=== PATIENT | female | born 1935 | race Caucasian/White ===

== ENCOUNTER 2018-10-20 11:48 | Emergency (ER) | payer OTHER ==
[~2018-10-20 11:48] MED LIST: ALBU2.5V2 IH; AMIT25TA9 PO; AMIT50TA3 PO; AMLO5TAB7 PO; ASPI-1114 PO; AZAT50TA PO; BACL10TA PO; BENZ-51 PO; CALC600T12 PO; CARB-38 PO; CHOL200074 PO; CLON0.1T PO; DONE5TAB26 PO; DULO60CA63 PO; FURO20TA4 PO; GABA-531 PO; GABA600T PO; HYDR-4068 PO; ISOS30TA6 PO; LEVO500T2 PO; LEVO500T89 PO; LORA1TAB3 PO; LOSA100T20 PO; METO25TA3 PO; METR500T PO; MULT-1268 PO; PRED10TA3 PO; PRED20TA3 PO; PRED5TAB PO; ROPI0.257 PO; ROPI0.5T5 PO; [UNRECOGNIZED DRUG - CODE] PO
[2018-10-20] MEDS ORDERED: KETOROLAC TROMETHAMINE 30MG/ML ONE (12:33)
[2018-10-20 12:47] LABS: BASOPHILS % (AUTO) 0.9 % (0.0-5.0); EOSINOPHILS % (AUTO) 3.1 % (0.0-8.0); LYMPHOCYTES % (AUTO) 11.8 % (21.0-51.0); MEAN CORPUSCULAR HEMOGLOBIN 29.5 pg (27.0-33.0); MEAN CORPUSCULAR HGB CONC 33.4 g/dL (32.0-36.0); MEAN CORPUSCULAR VOLUME 88.5 fL (79-99); MONOCYTES % (AUTO) 6.7 % (3.0-13.0); NEUTROPHILS % (AUTO) 77.5 % (40.0-77.0); NUCLEATED RED BLOOD CELLS 0.1 % (0.0-0.19); PLATELET COUNT (AUTO) 99 K/uL (130-400); RED BLOOD CELL COUNT(AUTO) 4.86 MIL/uL (4.00-5.50); RED CELL DISTRIBUTION WIDTH 16.5 % (11.0-15.5); WHITE BLOOD COUNT (AUTO) 5.2 K/uL (4.8-10.8)
[2018-10-20 13:12] LABS: CREATININE 0.8 mg/dL (0.5-1.5)
[2018-10-20 13:27] LABS: BILIRUBIN,TOTAL 0.5 mg/dL (0.2-1.0)
[2018-10-20 13:28] LABS: ALBUMIN 3.6 g/dL (3.5-5.0); TOTAL PROTEIN, SERUM 7.3 g/dL (6.0-8.3)
== END 2018-10-20 15:24 | disposition home or self-care (01) ==
LOC: EDH 11:48
CPT/HCPCS: 36415; 71046; 71100; 80053; 84484; 85025; 93005; 96374; J1885

== ENCOUNTER 2019-05-14 14:50 | Emergency (ER) | payer OTHER ==
[~2019-05-14 14:50] MED LIST changes: -AMLO5TAB7 PO; +AMLO5TAB9 PO; -LOSA100T20 PO; +LOSA100T58 PO
[2019-05-14] MEDS ORDERED: CLINDAMYCIN HCL 150 MG CAP ONE (15:47)
[2019-05-14 16:03] LABS: CREATININE 0.8 mg/dL (0.5-1.5); POTASSIUM 4.3 mmol/L (3.5-5.1)
[2019-05-14 16:45] LABS: HEMATOCRIT 35.7 % (36-48); MEAN CORPUSCULAR HEMOGLOBIN 30.5 pg (27.0-33.0); MEAN CORPUSCULAR HGB CONC 33.8 g/dL (32.0-36.0); MEAN CORPUSCULAR VOLUME 90.2 fL (79-99); MONOCYTES % (AUTO) 7.5 % (3.0-13.0); NEUTROPHILS % (AUTO) 74.5 % (40.0-77.0); PLATELET COUNT (AUTO) 97 K/uL (130-400); RED BLOOD CELL COUNT(AUTO) 3.96 MIL/uL (4.00-5.50); RED CELL DISTRIBUTION WIDTH 16.7 % (11.0-15.5); WHITE BLOOD COUNT (AUTO) 5.1 K/uL (4.8-10.8)
[2019-05-14 18:25] LABS: PLATELET MORPHOLOGY COMMENT LARGE PLTS PRESENT
== END 2019-05-14 17:41 | disposition home or self-care (01) ==
LOC: EDH 14:50
DX: L03.113 Cellulitis of right upper limb (principal); I10 Essential (primary) hypertension; M79.7 Fibromyalgia; I25.10 Atherosclerotic heart disease of native coronary artery without angina pectoris; Z88.0 Allergy status to penicillin; Z88.2 Allergy status to sulfonamides; Z88.8 Allergy status to other drugs, medicaments and biological substances; Z95.0 Presence of cardiac pacemaker; Z90.710 Acquired absence of both cervix and uterus; Z90.49 Acquired absence of other specified parts of digestive tract; Z72.0 Tobacco use
CPT/HCPCS: 36415; 73130; 80048; 85025

== ENCOUNTER 2019-05-15 13:12 | Emergency (ER) | payer OTHER ==
[2019-05-15 13:46] LABS: BASOPHILS % (AUTO) 0.6 % (0.0-5.0); EOSINOPHILS % (AUTO) 2.6 % (0.0-8.0); HEMATOCRIT 36.2 % (36-48); LYMPHOCYTES % (AUTO) 11.6 % (21.0-51.0); MEAN CORPUSCULAR HEMOGLOBIN 29.7 pg (27.0-33.0); MEAN CORPUSCULAR HGB CONC 33.2 g/dL (32.0-36.0); MEAN CORPUSCULAR VOLUME 89.5 fL (79-99); NEUTROPHILS % (AUTO) 77.2 % (40.0-77.0); PLATELET COUNT (AUTO) 111 K/uL (130-400); RED BLOOD CELL COUNT(AUTO) 4.04 MIL/uL (4.00-5.50); RED CELL DISTRIBUTION WIDTH 16.8 % (11.0-15.5)
[2019-05-15 13:52] LABS: CREATININE 0.8 mg/dL (0.5-1.5); POTASSIUM 4.3 mmol/L (3.5-5.1)
[2019-05-15 13:57] LABS: ALBUMIN 3.7 g/dL (3.5-5.0); BILIRUBIN,TOTAL 0.5 mg/dL (0.2-1.0); TOTAL PROTEIN, SERUM 7.1 g/dL (6.0-8.3)
[2019-05-15] MEDS ORDERED: METHYLPREDNISOLONE SOD SUCC 125MG/2ML VIAL ONE (15:13)
[2019-05-15] MEDS ORDERED: KETOROLAC TROMETHAMINE 15MG/ML ONE (15:13)
== END 2019-05-15 16:00 | disposition home or self-care (01) ==
LOC: EDH 13:12
DX: M65.841 Other synovitis and tenosynovitis, right hand (principal); L03.90 Cellulitis, unspecified; I25.10 Atherosclerotic heart disease of native coronary artery without angina pectoris; I10 Essential (primary) hypertension; Z90.49 Acquired absence of other specified parts of digestive tract; Z90.710 Acquired absence of both cervix and uterus; Z88.0 Allergy status to penicillin; Z88.2 Allergy status to sulfonamides; Z88.8 Allergy status to other drugs, medicaments and biological substances
CPT/HCPCS: 36415; 73130; 80053; 85025; 85651; 86140; 96374; 96375; 99285; J1885; J2930